=== PATIENT | male | born 1975 | race Caucasian/White ===

== ENCOUNTER 2022-02-08 20:25 | Emergency (ER) | payer MEDICAID ==
[~2022-02-08] VITALS: Ht 185.4 cm; Wt 88.6 kg
[2022-02-08] MEDS ORDERED: sulfamethoxazole/trimethoprim DS (800/160mg) tablet PO ONE (21:40)
[2022-02-08] MEDS ORDERED: ibuprofen tablet 400 MG TABLET PO ONE (21:40)
[2022-02-08] MEDS ORDERED: SULF1TAB49 PO (21:44)
[2022-02-08] MEDS ORDERED: IBUP-1986 PO (21:44)
== END 2022-02-08 22:20 | disposition home or self-care (01) ==
LOC: ER 20:25
DX: S80.261A Insect bite (nonvenomous), right knee, initial encounter (principal); M25.561 Pain in right knee; Z79.2 Long term (current) use of antibiotics; Z79.899 Other long term (current) drug therapy; W57.XXXA Bitten or stung by nonvenomous insect and other nonvenomous arthropods, initial encounter; Y93.89 Activity, other specified; Y92.89 Other specified places as the place of occurrence of the external cause; Y99.8 Other external cause status
CPT/HCPCS: 99283

== ENCOUNTER 2022-02-10 11:18 | Emergency (ER) | payer MEDICAID ==
[~2022-02-10] VITALS: Ht 185.4 cm; Wt 84.1 kg
[~2022-02-10 11:18] MED LIST: IBUP-1986 PO; SULF1TAB49 PO
[2022-02-10 11:29] VITALS: BP 163/97
[2022-02-10] MEDS ORDERED: CEPH-585 PO (12:06)
== END 2022-02-10 13:19 | disposition home or self-care (01) ==
LOC: ER 11:18
DX: S80.261D Insect bite (nonvenomous), right knee, subsequent encounter (principal); L03.115 Cellulitis of right lower limb; W57.XXXD Bitten or stung by nonvenomous insect and other nonvenomous arthropods, subsequent encounter
CPT/HCPCS: 10060; 99283

== ENCOUNTER 2022-02-17 18:00 | Emergency (ER) | payer MEDICAID ==
[~2022-02-17] VITALS: Ht 185.4 cm; Wt 88.6 kg
[~2022-02-17 18:00] MED LIST changes: +CEPH-585 PO
[2022-02-17 18:07] VITALS: BP 104/62
[2022-02-17] MEDS ORDERED: HYDROcodone/acetaminophen 10/325mg tab PO ONE (19:10)
[2022-02-17] MEDS ORDERED: HYDR-3965 PO (19:15)
== END 2022-02-17 20:32 | disposition home or self-care (01) ==
LOC: ER 18:01
DX: S42.021A Displaced fracture of shaft of right clavicle, initial encounter for closed fracture (principal); W18.39XA Other fall on same level, initial encounter; Y93.89 Activity, other specified; Y92.89 Other specified places as the place of occurrence of the external cause; Y99.8 Other external cause status
CPT/HCPCS: 73000; 99283

== ENCOUNTER 2022-05-30 12:58 | Emergency (ER) | payer MEDICAID ==
[~2022-05-30] VITALS: Ht 188 cm; Wt 88.6 kg
[~2022-05-30 12:58] MED LIST changes: -SULF1TAB49 PO
[2022-05-30 13:05] VITALS: BP 117/74
[2022-05-30] MEDS ORDERED: CEPH-585 PO (14:19)
== END 2022-05-30 14:39 | disposition home or self-care (01) ==
LOC: ER 12:58
DX: L03.116 Cellulitis of left lower limb (principal)
CPT/HCPCS: 99283

== ENCOUNTER 2023-03-29 21:22 | Emergency (ER) | payer MEDICAID ==
[~2023-03-29] VITALS: Ht 188 cm; Wt 86.4 kg
[2023-03-29 21:31] VITALS: BP 140/86
== END 2023-03-29 23:43 | disposition left against medical advice (07) ==
LOC: ER 21:22
DX: R21 Rash and other nonspecific skin eruption (principal); Z53.21 Procedure and treatment not carried out due to patient leaving prior to being seen by health care provider
CPT/HCPCS: 99281

== ENCOUNTER 2023-08-27 18:53 | Emergency (ER) | payer MEDICAID ==
[~2023-08-27] VITALS: Ht 188 cm; Wt 89.9 kg
[~2023-08-27 18:53] MED LIST changes: -CEPH-585 PO
[2023-08-27 19:02] VITALS: BP 145/91; PULSE 72; RESP 16; TEMP 98.3; O2SAT 100
== END 2023-08-27 20:13 | disposition left against medical advice (07) ==
LOC: ER 18:53
DX: R20.0 Anesthesia of skin (principal); Z53.21 Procedure and treatment not carried out due to patient leaving prior to being seen by health care provider
CPT/HCPCS: 99281

== ENCOUNTER 2023-10-31 16:44 | Emergency (ER) | payer MEDICAID ==
[~2023-10-31] VITALS: Ht 188 cm; Wt 89.0 kg
[2023-10-31 19:15] LABS: BASOPHILS # (AUTO) 0.1 X10'3 (0-0.2); BASOPHILS % (AUTO) 0.9 % (0-1); EOSINOPHILS # (AUTO) 0.3 X10'3 (0-0.9); EOSINOPHILS % (AUTO) 2.7 % (0-6); HEMATOCRIT 41.7 % (42.0-52.0); HEMOGLOBIN 14.2 g/dl (14.0-17.9); LYMPHOCYTES % (AUTO) 18.7 % (21-51); MEAN CORPUSCULAR HEMOGLOBIN 30.1 PG (27.0-31.0); MEAN CORPUSCULAR VOLUME 88.5 FL (78-98); MEAN PLATELET VOLUME 9.1 FL (7.4-10.4); MONOCYTES # (AUTO) 0.9 X10'3 (0-0.9); MONOCYTES % (AUTO) 8.1 % (2-12); NEUTROPHILS # (AUTO) 7.4 X10'3 (1.8-7.7); NEUTROPHILS % (AUTO) 69.6 % (42-75); PLATELET COUNT 296 X10'3 (140-440); RED BLOOD COUNT 4.72 X10'6 (4.70-6.10); RED CELL DISTRIBUTION WIDTH 13.2 % (11.5-14.5); WHITE BLOOD COUNT 10.7 X10'3 (4.5-11.0)
[2023-10-31 19:46] LABS: ALANINE AMINOTRANSFERASE 20 U/L (12-78); ALBUMIN 3.3 G/DL (3.4-5.0); ALBUMIN/GLOBULIN RATIO 0.7 (1.1-1.5); ALKALINE PHOSPHATASE 104 IU/L (46-116); ANION GAP 7 (8-16); ASPARTATE AMINO TRANSFERASE 16 U/L (10-37); BILIRUBIN,TOTAL 0.7 MG/DL (0.1-1.0); BLOOD UREA NITROGEN 23 MG/DL (7-18); BUN/CREATININE RATIO 23.2 (10.0-20.0); CALCIUM 8.6 MG/DL (8.5-10.1); CHLORIDE 103 MMOL/L (99-107); CREATININE 0.99 MG/DL (0.60-1.10); GLUCOSE 102 MG/DL (70-104); POTASSIUM 4.4 MMOL/L (3.5-5.1); SODIUM 139 MMOL/L (135-145); TOTAL CARBON DIOXIDE 28.7 MMOL/L (24-32); eCRCL 107 ML/MIN; eGFR 81 ML/MIN
[2023-10-31] MEDS ORDERED: clindamycin 150mg capsule PO STA (21:17)
[2023-10-31] MEDS ORDERED: CefTRIAXone 1000mg IM Kit (w/lidocaine diluent) IM ONE (21:20)
[2023-10-31] MEDS ORDERED: ketorolac trometh. 30mg/ml inj. IM ONE (21:20)
[2023-10-31] MEDS ORDERED: LIDOcaine 1% 30ml preserv. free vial IJ ONE (21:20)
[2023-10-31] MEDS ORDERED: IBUP-1984 PO (22:58)
[2023-10-31] MEDS ORDERED: CLIN300C54 PO (22:58)
[2023-10-31 23:08] VITALS: BP 153/96; PULSE 86; RESP 18; TEMP 98.2; O2SAT 99
== END 2023-10-31 23:10 | disposition home or self-care (01) ==
LOC: ER 16:44
DX: L02.416 Cutaneous abscess of left lower limb (principal); Z79.1 Long term (current) use of non-steroidal anti-inflammatories (NSAID); Z79.2 Long term (current) use of antibiotics
CPT/HCPCS: 10060; 36415; 73564; 80053; 84145; 85025; 93971; 96372; 99285; A6266; J0696; J1885; J7030; A6258; A6449

== ENCOUNTER 2023-12-23 14:24 | Emergency (ER) | payer MEDICAID ==
[~2023-12-23] VITALS: Ht 188 cm; Wt 92.0 kg
[2023-12-23 14:34] VITALS: BP 160/97; PULSE 82; TEMP 98; O2SAT 98
[2023-12-23] MEDS ORDERED: IBUP-1985 PO (15:34)
[2023-12-23] MEDS ORDERED: HYDR-3965 PO (15:34)
[2023-12-23 15:35] VITALS: RESP 18
[2023-12-23] MEDS: ketorolac tromethamine 15mg/ml inj. IM ONE (15:35)
== END 2023-12-23 15:45 | disposition home or self-care (01) ==
LOC: ER 14:24
DX: S46.011A Strain of muscle(s) and tendon(s) of the rotator cuff of right shoulder, initial encounter (principal); Z79.899 Other long term (current) drug therapy; X50.0XXA Overexertion from strenuous movement or load, initial encounter; Y93.89 Activity, other specified; Y92.89 Other specified places as the place of occurrence of the external cause; Y99.8 Other external cause status
CPT/HCPCS: 73030; 96372; 99283; J1885; A4565

== ENCOUNTER 2025-03-04 09:03 | Emergency (ER) | payer MEDICAID ==
[~2025-03-04] VITALS: Ht 188 cm; Wt 90.9 kg
[~2025-03-04 09:03] MED LIST changes: +IBUP-1985 PO
[2025-03-04 10:03] LABS: BASOPHILS # (AUTO) 0.1 X10'3 (0-0.2); BASOPHILS % (AUTO) 1.4 % (0-1); EOSINOPHILS # (AUTO) 0.4 X10'3 (0-0.9); EOSINOPHILS % (AUTO) 6.9 % (0-6); HEMATOCRIT 41.8 % (42.0-52.0); HEMOGLOBIN 14.3 g/dl (14.0-17.9); LYMPHOCYTES # (AUTO) 1.3 X10'3 (1.1-4.8); LYMPHOCYTES % (AUTO) 22.8 % (21-51); MEAN CORPUSCULAR HEMOGLOBIN 29.7 PG (27.0-31.0); MEAN CORPUSCULAR HGB CONC 34.1 g/dL (33.0-36.5); MEAN PLATELET VOLUME 9.8 FL (7.4-10.4); MONOCYTES # (AUTO) 0.4 X10'3 (0-0.9); MONOCYTES % (AUTO) 7.4 % (2-12); NEUTROPHILS # (AUTO) 3.6 X10'3 (1.8-7.7); NEUTROPHILS % (AUTO) 61.5 % (42-75); PLATELET COUNT 218 X10'3 (140-440); RED CELL DISTRIBUTION WIDTH 13.3 % (11.5-14.5); WHITE BLOOD COUNT 5.9 X10'3 (4.5-11.0)
[2025-03-04 10:21] LABS: BILIRUBIN,URINE NEGATIVE (Neg); CLARITY,URINE CLEAR (Clear); COLOR,URINE YELLOW (Yellow); GLUCOSE, URINE NEGATIVE (Neg); KETONES,URINE NEGATIVE (Neg); LEUKOCYTE ESTERASE ,URINE NEGATIVE (Neg); NITRITES, URINE NEGATIVE (Neg); OCCULT BLOOD,URINE NEGATIVE (Neg); PROTEIN,URINE NEGATIVE (Neg); UROBILINOGEN,URINE 0.2 E.U/dL (0.2-1.0)
[2025-03-04 10:24] LABS: UA COLLECTION TYPE VOIDED
--- NOTE | 2025-03-04 10:27 | Physician Documentation ---
History of Present Illness ~ Chief Complaint: Abdominal Pain Stated Complaint: L SIDED ABD/BACK PAIN Time Seen by MD: 09:59 Primary Medical Doctor: Felicitas Mode of Arrival: POV, Ambulatory HPI 50-year-old male presenting with left flank pain that has been ongoing for the past couple of weeks but has significantly worsened over the past 3-4 days. He describes it as a severe sharp pain that will come and go but has remained constant for the past 2-3 days. He states that it will radiate from the left side of his back all the way to the left side of his stomach and down into his groin. He states that his urine has been a little bit darker than usual but denies seeing any blood in there. Denies any burning on urination or increased urinary frequency or urgency. Denies any fever, chills, nausea, vomiting or any other associated symptoms. Medication Reconciliation Allergies: Coded Allergies: No Known Allergies (Unverified , 12/23/23) Scheduled Ibuprofen (Ibuprofen), 1 TAB PO Q8H Ibuprofen (Ibuprofen), 1 TAB PO Q6H Past Medical History Past Medical History: No Pertinent History Past Surgical History: noncontributory Lives In: Home Occupation: employed Physical Exam Physical Exam Vital Signs: Temperature: 98.0, Heart Rate: 63, Respiratory Rate: 18, BP: 132/94, Pulse Oximetry: 97, Weight: 90.900 Oxygen Flow Rate: 0 Physical Exam Procedure: DI CHEST,SINGLE VIEW 03/04/2025 09:14 AM Indication: SOB Comparison: CHEST,SINGLE VIEW on DOS: 02/26/22, CHEST,SINGLE VIEW on DOS: 02/09/21 I have reviewed the triage vitals. CONST: Well developed and well nourished. In no acute distress HENT: Head Atraumatic EYES: Pupils are equal, round and reactive to light. Normal conjunctiva NECK: Normal range of motion. Supple. CARDIO: Normal rate and regular rhythm. No murmurs, rubs, or gallops. S1, S2. PULM/CHEST: No respiratory distress. Lungs clear to auscultation. No wheeze ABD: Soft. Tenderness to palpation over the left upper quadrant and left lower quadrant. Nondistended. Bowel sounds normal. No guarding. Left CVA tenderness : Exam deferred MSK: No edema. No deformity. NEURO: Alert and oriented to person, place and time. Moving all extremities SKIN: Warm and dry. PSYCH: Normal mood and affect. Good eye contact. Progress Results/Orders Results/Orders Orders - CIRO GALVAN MD Ct Abdomen Pelvis (03/04/25 10:41) Completed Orders - CIRO GALVAN MD Urinalysis, Cult If Indicated (03/04/25 09:20) Cbc/Diff (03/04/25 09:20) BMP (03/04/25 09:20) Lipase (03/04/25 09:20) CMP (03/04/25 09:20) Ct Abdomen Pelvis (03/04/25 10:41) Normal Saline 1000ml (Sodium Chloride 10 (03/04/25 10:25) Ketorolac Trometh 30mg/Ml Vial (Toradol (03/04/25 10:25) Electrocardiogram (03/04/25 ) Troponin (Single) (03/04/25 10:32) Calcium Gluc 1gm/50ml Nacl,Iso (Calcium (03/04/25 11:15) Electrocardiogram (03/04/25 ) Troponin (Single) (03/04/25 11:15) MG (03/04/25 09:33) Medications Received in ER Medications (Trade) Dose Ordered Sig/[place] Route PRN Reason Start Time Stop Time Status Last Admin Dose Admin Sodium Chloride 1,000 ml @ 1,000 mls/hr ONCE ONCE IV 03/04/25 10:25 03/04/25 11:24 DC 03/04/25 10:51 1,000 MLS/HR (Toradol inj. 30mg/ml) 30 mg ONCE ONCE IV 03/04/25 10:25 03/04/25 10:31 DC 03/04/25 10:53 30 MG Calcium Gluconate 50 ml @ 50 mls/hr ONCE ONCE IV 03/04/25 11:15 03/04/25 12:14 DC 03/04/25 11:31 50 MLS/HR Vital Signs 03/04/25 03/04/25 03/04/25 03/04/25 09:18 09:50 09:56 10:53 Temp 98.0 98.0 Pulse 65 63 Resp 15 16 18 16 B/P (MAP) 143/84 132/94 (107) Pulse Ox 98 97 O2 Flow Rate 0 0 03/04/25 10:54 Temp 98.0 Pulse 55 Resp 16 B/P (MAP) 131/87 (102) Pulse Ox 100 O2 Flow Rate 0 Laboratory Tests Test 03/04/25 09:16 03/04/25 09:33 03/04/25 11:27 Urine Specimen Description Voided Urine Color Yellow Urine Clarity Clear Urine pH 6.0 Urine Specific [place] >=1.030 Urine Protein Negative Urine Glucose (UA) Negative Urine Ketones Negative Urine Occult Blood Negative Urine Nitrite Negative Urine Bilirubin Negative Urine Urobilinogen 0.2 Urine Leukocyte Esterase Negative Urine Culture Indicated Not ind Volume Urine Centrifuged 10 ml Urine Comment White Blood Count 5.9 Red Blood Count 4.80 Hemoglobin 14.3 Hematocrit 41.8 L Mean Corpuscular Volume 87.0 Mean Corpuscular Hemoglobin 29.7 Mean Corpuscular Hemoglobin Concent 34.1 Red Cell Distribution Width 13.3 Platelet Count 218 Mean Platelet Volume 9.8 Neutrophils (%) (Auto) 61.5 Lymphocytes (%) (Auto) 22.8 Monocytes (%) (Auto) 7.4 Eosinophils (%) (Auto) 6.9 H Basophils (%) (Auto) 1.4 H Neutrophils # (Auto) 3.6 Lymphocytes # (Auto) 1.3 Monocytes # (Auto) 0.4 Eosinophils # (Auto) 0.4 Basophils # (Auto) 0.1 CBC Comment Sodium Level 141 Potassium Level 4.1 Chloride Level 107 Carbon Dioxide Level 25.0 Anion Gap 9 Blood Urea Nitrogen 16 Creatinine 0.94 Estimated GFR/1.73 m2 85 BUN/Creatinine Ratio 17.0 Glucose Level 92 Calcium Level 8.3 L Magnesium Level 2.2 Total Bilirubin 0.5 Aspartate Amino Transf (AST/SGOT) 19 Alanine Aminotransferase (ALT/SGPT) 31 Alkaline Phosphatase 93 Troponin I High Sensitivity 6 6 Total Protein 6.6 Albumin 3.2 L Globulin 3.4 Albumin/Globulin Ratio 0.9 L Lipase 34 Chemistry Comments EKG/XRAY/CT/US/VASC/MRI EKG : Additional Comment EKG as interpreted by ED MD indicating sinus bradycardia at a rate of 49 beats per minute, no acute ischemia but some early repolarization is present in leads V2 and V3, normal axis Repeat EKG due to the patient's lightheadedness as interpreted by ED MD indicating sinus bradycardia at a rate of 42 beats per minute, no acute ischemia but some early repolarization present in V2 and V3, normal axis, overall unchanged from 1st EKG CT : Interpreted By: both CT: abdomen/pelvis Impression Procedure: CT CT ABDOMEN PELVIS 03/04/2025 10:39 AM Indication: Left flank pain Comparison Study: None Technique: Axial images were obtained and reformatted in coronal and sagittal planes. All CT scans at this medical facility are performed using dose modulation techniques as appropriate to a performed exam including the following: Automated exposure control was utilized; adjustment of the MA and/or KV according to patient size; and use of iterative reconstruction technique. CT Dose: CTDI volume is 23.7 mGy. Dose-length product is 1209 mGy*cm FINDINGS: Lower Chest: Unremarkable. Hepatobiliary: Unremarkable. Spleen: Unremarkable. Pancreas: Unremarkable. Adrenal Glands: Unremarkable. tract: The kidneys are normal in size bilaterally without hydronephrosis or nephrolithiasis. The urinary bladder is unremarkable. GI tract: The stomach is grossly normal in appearance. No evidence of small bowel obstruction. Few sigmoid diverticula are seen without diverticulitis. The appendix is normal. Lymphatics: No mesenteric, retroperitoneal or periportal lymphadenopathy. Vasculature: The abdominal aorta is normal in caliber. Pelvic Organs: Unremarkable Bones/soft tissues: No acute abnormality. Degenerative changes of the lumbar spine noted. Small fat-containing umbilical hernia. Other: None. IMPRESSION: 1. No CT evidence for acute intra-abdominal or intrapelvic process. No hydronephrosis or urinary calculi. Few sigmoid diverticula without diverticulitis. 2. Small fat containing umbilical hernia. A left ureteral stone was visualized on my read but not on the radiologist read. - Ciro Galvan MD, 03/04/2025, 11:21 a.m. Medical Decision Making Differential Diagnosis 50-year-old male presenting with left flank pain with what appears to be due to a left ureteral calculus. Patient's CT did indicate this although the radiologist read was negative. Upon my read of the CT however I did notice a small stone in the distal ureter which is likely the cause of the patient's pain as his symptoms and clinical history are consistent with this. Patient was slightly bradycardic with a heart rate in the 40s and 50s. Lab workup did show a slightly low calcium level of 8.3. Once I replaced his calcium with 1 g of calcium gluconate his heart rate improved into the 50s and 60s. Patient was asymptomatic during this time. The remainder of his lab work was unremarkable. Patient was medicated for pain with 30 mg of IV Toradol with good improvement of symptoms. He was also given IV fluids. At this point in time patient is stable and safe for discharge home. On reassessment his vitals are normal and his exam is normal in his pain has improved. Will discharge home with a prescription for Flomax as well as ibuprofen and 10 tablets of [place] 5-325 mg to take as needed for pain. Patient advised to monitor his symptoms for improvement and monitor for passage of the stone. I advised him to drink plenty of fluids. Follow up with his primary care physician in the next 2-3 days. Return to the ED immediately with any acute worsening symptoms. Departure Disposition: 01 HOME / SELF CARE / HOMELESS Impression: Primary Impression: Ureteral calculus Additional Impression: Bradycardia Condition: Improved Discharge Instructions: Kidney Stones, [id number] Additional Instructions: You have been diagnosed with a kidney stone. This should pass on its own but will be painful. Please drink plenty of fluids and monitor for passage of the stone. I will prescribe Flomax to take daily to facilitate the passage of the stone. Additionally I will prescribe you ibuprofen and [place] for pain. Take the ibuprofen every 4-6 hours as needed and only use the [place] for any breakthrough severe pain. Please follow up with her primary care physician as well in the next 2-3 days. Return to the ED with any acutely worsening symptoms. Referrals: NO PRIMARY CARE PROVIDER (PCP) Prescriptions Tamsulosin Hcl* (Flomax*) 0.4 Mg Cap.sr.24h 1 CAP PO DAILY for 30 Days, #30 CAP Prov: CIRO GALVAN MD 03/04/25 Hydrocodone Bit/Acetaminophen 5/325 MG ([place] 5/325 MG) 5 Mg/325 Mg Tablet 1 TAB PO Q6H PRN for pain, #14 TAB Prov: CIRO GALVAN MD 03/04/25 Ibuprofen (Ibuprofen) 600 Mg Tablet 1 TAB PO Q8H for pain for 10 Days, #30 TAB 0 Refills with food Prov: CIRO GALVAN MD 03/04/25 Signature Scribe Signature: 1 Attestation: 1 CIRO GALVAN MD March 04, 2025 10:27
[2025-03-04 10:32] LABS: ALANINE AMINOTRANSFERASE 31 U/L (12-78); ALBUMIN 3.2 G/DL (3.4-5.0); ALBUMIN/GLOBULIN RATIO 0.9 (1.1-1.5); ALKALINE PHOSPHATASE 93 IU/L (46-116); ANION GAP 9 (8-16); ASPARTATE AMINO TRANSFERASE 19 U/L (10-37); BILIRUBIN,TOTAL 0.5 MG/DL (0.1-1.0); BLOOD UREA NITROGEN 16 MG/DL (7-18); CALCIUM 8.3 MG/DL (8.5-10.1); CHLORIDE 107 MMOL/L (99-107); CREATININE 0.94 MG/DL (0.60-1.10); GLUCOSE 92 MG/DL (70-104); LIPASE 34 U/L (16-77); POTASSIUM 4.1 MMOL/L (3.5-5.1); SODIUM 141 MMOL/L (135-145); TOTAL PROTEIN 6.6 G/DL (6.4-8.2); eCRCL 111 ML/MIN; eGFR 85 ML/MIN
--- NOTE | 2025-03-04 10:37 | ELECTROCARDIOGRAPH REPORT ---
[facility] Test Date: 2025-03-04 Test Time: 10:34:20 Pat Name: ECTOR ZULETA Department: [facility]- Patient ID: [id number] Room: Gender: M Sander Machine: : 1975 Requested By: ANATOLY GALVAN Order Number: [id number] Reading MD: Dr. Anton Jay Measurements Intervals [place] Rate: 49 P: 71 MT: 157 QRS: 9 QRSD: 109 T: 69 QT: 448 QTc: 405 Interpretive Statements Sinus bradycardia Probable left atrial enlargement RSR' in V1 or V2, probably normal variant ST elev, probable normal early repol pattern Electronically Signed On 03-08-2025 13:44:[address] Anton Jay Please click the below link to view image of tracing.
[2025-03-04] MEDS: normal saline 1000ml 1,000 ML IV ONE (10:51)
[2025-03-04] MEDS: ketorolac trometh 30MG/ML vial 30 MG/ML VIAL IV ONE (10:53)
--- NOTE | 2025-03-04 11:13 | RADIOLOGY REPORT ---
Procedure: CT CT ABDOMEN PELVIS 03/04/2025 10:39 AM Indication: Left flank pain Comparison Study: None Technique: Axial images were obtained and reformatted in coronal and sagittal planes. All CT scans at this medical facility are performed using dose modulation techniques as appropriate to a performed e xam including the following: Automated exposure control was utilized; adjustment of the MA and/or KV according to patient size; and use of iterative reconstruction technique. CT Dose: CTDI volume is 23. 7 mGy. Dose-length product is 1209 mGy*cm FINDINGS: Lower Chest: Unremarkable. Hepatobiliary: Unremarkable. Spleen: Unremarkable. Pancreas: Unremarkable. Adrenal Glands: Unremarkable. tract: The kidneys are normal in size bilaterally without hydronephrosis or nephrolithiasis. The u rinary bladder is unremarkable. GI tract: The stomach is grossly normal in appearance. No evidence of small bowel obstruction. Few si gmoid diverticula are seen without diverticulitis. The appendix is normal. Lymphatics: No mesenteric, retroperitoneal or periportal lymphadenopathy. Vasculature: The abdominal aorta is normal in caliber. Pelvic Organs: Unremarkable Bones/soft tissues: No acute abnormality. Degenerative changes of the lumbar spine noted. Small fat-c ontaining umbilical hernia. Other: None. IMPRESSION: 1. No CT evidence for acute intra-abdominal or intrapelvic process. No hydronephrosis or urinary calc ginger. Few sigmoid diverticula without diverticulitis. 2. Small fat containing umbilical hernia.
--- NOTE | 2025-03-04 11:22 | ELECTROCARDIOGRAPH REPORT ---
[facility] Test Date: 2025-03-04 Test Time: 11:19:39 Pat Name: ECTOR ZULETA Department: [facility]- Patient ID: [id number] Room: Gender: M Pile Operator: : [id number] Requested By: ANATOLY GALVAN Order Number: [id number] Reading MD: Dr. Anton Jay Measurements Intervals [place] Rate: 42 P: 68 NH: 161 QRS: 15 QRSD: 108 T: 70 QT: 486 QTc: 407 Interpretive Statements Sinus bradycardia RSR' in V1 or V2, probably normal variant ST elev, probable normal early repol pattern Electronically Signed On 03-08-2025 13:44:[address] Anton Jay Please click the below link to view image of tracing.
[2025-03-04] MEDS: CALCIUM GLUC 1gm/50ml NACL,iso 50 ML IV ONE (11:31)
[2025-03-04 11:44] LABS: MAGNESIUM 2.2 MG/DL (1.5-2.4)
[2025-03-04] MEDS ORDERED: HYDR-3965 PO (12:31)
[2025-03-04] MEDS ORDERED: TAMS-55 PO (12:31)
[2025-03-04] MEDS ORDERED: IBUP-1985 PO (12:31)
[2025-03-04 12:42] VITALS: BP 127/65; PULSE 59; RESP 18; TEMP 98; O2SAT 99
== END 2025-03-04 12:57 | disposition home or self-care (01) ==
LOC: ER 09:04
DX: N20.1 Calculus of ureter (principal); Z79.899 Other long term (current) drug therapy; R00.1 Bradycardia, unspecified
CPT/HCPCS: 36415; 74176; 80053; 81003; 83690; 83735; 84484; 85025; 93005; 96361; 96365; 96375; 99285; J0610; J1885; J7030

== ENCOUNTER 2025-05-02 09:15 | Outpatient (CLI) | payer MEDICAID ==
--- NOTE | 2025-05-02 09:52 | RADIOLOGY REPORT ---
PROCEDURE: MR MRI C SPINE INDICATION: RADICULOPATHY, CERVICAL REGION EXAM DATE: 05/02/2025 08:32 AM COMPARISON: None TECHNIQUE: MRI cervical spine without intravenous contrast. FINDINGS: No fractures are identified about the cervical spine. There is straightening of normal cervical lordo sis. There is slight anterolisthesis C3 on C4; slight retrolisthesis C5 on C6. The cervical spinal c anal is congenitally narrow. There is mild cerebellar tonsillar ectopia without evidence of Chiari I malformation. No abnormal signal in the cervical spinal cord. There is mucosal thickening of the bila teral sphenoid, bilateral ethmoid, and left maxillary sinuses. C2-C3: There is a minimal circumferential broad disc bulge. There is bilateral facet hypertrophy, gre ater on the right. The AP dimension of the spinal canal measures 8 mm. There is mild mass effect on the posterior margin of the cervical spinal cord at this level. There is moderate right and no sign ificant left neural foraminal stenosis. C3-C4: There is 2 mm anterolisthesis C3 on C4 without facet dislocation. There is a circumferential b road disc bulge. There is bilateral facet hypertrophy, greater on the left. The AP dimension of the spinal canal measures 8.2 mm. There is mild mass effect on the anterior margin of the cervical spina l cord at this level. There is moderate right and severe left neural foraminal stenosis. C4-C5: There is a circumferential broad disc bulge, most prominent centrally. The AP dimension of the spinal canal is narrowed to 7 mm. There is mass effect on the anterior margin of the cervical spinal cord at this level. There is bilateral facet hypertrophy. There is moderate right and mild left christi ral foraminal stenosis. C5-C6: There is a circumferential broad disc bulge with endplate hypertrophy, most prominent in the r ight paracentral region, measuring 4 mm AP. There is slight loss of disc height. There is bilateral u ncinate process hypertrophy. The AP dimension of the spinal canal measures 6 mm AP in the midline. Th ere is mass effect on the anterior margin of the cervical spinal cord, greater on the right. There is moderate to severe right and moderate left neural foraminal stenosis. C6-C7: There is a circumferential broad disc bulge with endplate hypertrophy. There is bilateral unci michelle process hypertrophy. There is mild loss of disc height. The AP dimension of the spinal canal emi sures 7 mm. There is mild mass effect on the anterior margin of the cervical spinal cord at this leve l. There is moderate to severe bilateral neural foraminal stenosis. C7-T1: There is mild loss of disc height. There is edema of the adjacent endplates. There is a circu mferential broad disc bulge with endplate hypertrophy. There is bilateral uncinate process hypertroph y. The AP dimension of the spinal canal measures 7.8 mm. There is slight mass effect on the anterior margin of the cervical spinal cord at this level. There is moderate bilateral neural foraminal sten osis. IMPRESSION: 1. No fracture of the cervical spine. 2. 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 There is mass effect on the cervical spinal cord at every disc level C2-T1. Recommend follow-up spin al surgery consultation if not already obtained. 3. Straightening of normal cervical lordosis may be chronic for the patient, positional, or due to mu scle spasm. 4. Multilevel significant neural foraminal stenosis including C2-C3 on the right, C3-C4 bilaterally, C4-C5 on the right, C5-C6 bilaterally, C6-C7 bilaterally, C7-T1 bilaterally. These findings may afia espond to upper extremity radicular symptoms in the right C3, bilateral C4, right C5, bilateral C6, b ilateral C7, bilateral T1 nerve root distributions. 5. Paranasal sinus disease, not fully imaged here.
== END 2025-05-02 23:59 | disposition home or self-care (01) ==
LOC: MRI02 09:15
DX: M50.13 Cervical disc disorder with radiculopathy, cervicothoracic region (principal); M43.12 Spondylolisthesis, cervical region; M48.02 Spinal stenosis, cervical region
CPT/HCPCS: 72141